=== PATIENT | female | born 1960 | race Caucasian/White ===

== ENCOUNTER 2019-10-04 10:41 | Outpatient (CLI) | payer BC, SELFPAY ==
[2019-10-04 11:24] LABS: Alanine Aminotransferase 22 U/L (4-35); Albumin Level 4.5 g/dL (3.5-5.1); Alkaline Phosphatase 56 U/L (38-126); Anion Gap 11.5 mmol/L (7-16); Aspartate Amino Transferase 22 U/L (14-36); Bilirubin,Total 0.4 mg/dL (0.2-1.3); Blood Urea Nitrogen 16 mg/dL (7-17); Calcium 9.1 mg/dL (8.4-10.2); Carbon Dioxide 27 mmol/L (22-30); Chloride 107 mmol/L (98-107); Cholesterol 187 mg/dL (0-200); Estimated Glomerular Filt Rate > 60; Glucose 93 mg/dL (65-105); HDL Direct 47 mg/dL; Potassium 4.5 mmol/L (3.4-5.0); Sodium 141 mmol/L (137-145); Triglycerides 58 mg/dL (<150)
[2019-10-04 11:35] LABS: LDL Cholesterol Direct 121 mg/dL
== END 2019-10-04 10:42 | disposition home or self-care (01) ==
PROVIDERS: PCP Family Medicine; Visit Provider Family Medicine
DX: E78.5 Hyperlipidemia, unspecified (principal)
CPT/HCPCS: 36415; 80053; 80061

== ENCOUNTER 2020-03-06 08:57 | Outpatient (CLI) | payer BC, SELFPAY ==
--- NOTE | ~2020-03-06 | MM_ITS ---
EXAMINATION: MM screening [facility] HISTORY: Screening mammogram TECHNIQUE: Craniocaudal and mediolateral oblique 3-D tomosynthesis images were obtained and synthetic 2-D images were generated. CAD analysis was submitted and interpreted. COMPARISON: 12/20/2018, 10/20/2017 bilateral digital screening mammogram examinations 09/02/2016 right screening digital left diagnostic digital mammogram examination BREAST PARENCHYMAL COMPOSITION: There are scattered areas of fibroglandular density. FINDINGS: Bilateral upper outer quadrant stable benign-appearing intramammary lymph nodes are noted. There is no evidence of suspicious mass, calcification, or architectural distortion to suggest malign yasmine in either breast. There has been no suspicious interval change. IMPRESSION: 1. No mammographic evidence of malignancy. 2. Recommend routine screening mammography in one year. BI-RADS Category 2: Benign finding(s). Reviewed, dictated and finalized at location B. E WORKER
== END 2020-03-06 08:58 | disposition home or self-care (01) ==
LOC: ANHIMG 09:01
PROVIDERS: PCP Family Medicine; Visit Provider Obstetrics & Gynecology
DX: Z12.31 Encounter for screening mammogram for malignant neoplasm of breast (principal)
CPT/HCPCS: 77063; 77067

== ENCOUNTER 2020-06-13 09:49 | Outpatient (CLI) | payer BC, SELFPAY ==
--- NOTE | 2020-06-13 11:30 | NEURO_ITS ---
Impression: # Complains of pain and numbness of hands, right more than left. # Left Carpal Tunnel Syndrome. # Bilateral ulnar neuropathy across the elbows, left more than right. # Normal needle/EMG exam. Nerve Conduction Studies Anti Sensory Summary Table Stim Site NR Peak (ms) P-T Amp (?V) Site1 Site2 Delta-P (ms) Dist (cm) Jasvir (m/s) Left Median Anti Sensory (2-3nd Digit) Wrist 4.3 28.6 Wrist 2-3nd Digit 4.3 14.0 33 Wrist 4.7 20.4 Wrist 2-3nd Digit 4.3 14.0 33 Right Median Anti Sensory (2-3nd Digit) Wrist 3.1 61.3 Wrist 2-3nd Digit 3.1 14.0 45 Wrist 3.3 35.7 Wrist 2-3nd Digit 3.1 14.0 45 Left Radial Anti Sensory (Base 1st Digit) Wrist 2.0 16.6 Wrist Base 1st Digit 2.0 0.0 Right Radial Anti Sensory (Base 1st Digit) Wrist 2.3 20.0 Wrist Base 1st Digit 2.3 0.0 Left Ulnar Anti Sensory (5th Digit) Wrist 2.6 14.6 Wrist 5th Digit 2.6 14.0 54 Right Ulnar Anti Sensory (5th Digit) Wrist 2.6 29.3 Wrist 5th Digit 2.6 14.0 54 Motor Summary Table Stim Site NR Onset (ms) O-P Amp (mV) Site1 Site2 Delta-0 (ms) Dist (cm) Jasvir (m/s) Left Median Motor (Abd Poll Brev) Wrist 4.6 2.2 Elbow Wrist 4.5 29.0 64 Elbow 9.1 4.0 Right Median Motor (Abd Poll Brev) Wrist 3.3 2.7 Elbow Wrist 4.4 26.0 59 Elbow 7.7 2.4 Left Ulnar Motor (Abd Dig Minimi) Wrist 2.7 8.5 A Elbow Wrist 5.8 29.0 50 A Elbow 8.5 7.5 B Elbow Wrist 4.1 23.0 56 B Elbow 6.8 4.2 Right Ulnar Motor (Abd Dig Minimi) Wrist 2.8 7.2 A Elbow Wrist 5.3 28.0 53 A Elbow 8.1 5.8 B Elbow Wrist 3.2 20.0 63 B Elbow 6.0 4.6 F Wave Studies NR F-Lat (ms) L-R F-Lat (ms) Left Median (Mrkrs) (Abd Poll Brev) 30.86 1.88 Right Median (Mrkrs) (Abd Poll Brev) 28.97 1.88 Left Ulnar (Mrkrs) (Abd Dig Min) 28.52 0.23 Right Ulnar (Mrkrs) (Abd Dig Min) 28.28 0.23 EMG Side Muscle Nerve Root Ins Act Fibs Amp Dur Recrt Comment Right 1stDorInt Ulnar C8-T1 Nml Nml Nml Nml Nml Right Ext Indicis Radial (Post Int) C7-8 Nml Nml Nml Nml Nml Right Ext Digitorum Radial (Post Int) C7-8 Nml Nml Nml Nml Nml Right BrachioRad Radial C5-6 Nml Nml Nml Nml Nml Right PronatorTeres Median C6-7 Nml Nml Nml Nml Nml Right Abd Poll Brev Median C8-T1 Nml Nml Nml Nml Nml Left 1stDorInt Ulnar C8-T1 Nml Nml Nml Nml Nml Left Ext Indicis Radial (Post Int) C7-8 Nml Nml Nml Nml Nml Left Ext Digitorum Radial (Post Int) C7-8 Nml Nml Nml Nml Nml Left BrachioRad Radial C5-6 Nml Nml Nml Nml Nml Left PronatorTeres Median C6-7 Nml Nml Nml Nml Nml Left Abd Poll Brev Median C8-T1 Nml Nml Nml Nml Nml MTDD
== END 2020-06-13 09:50 | disposition home or self-care (01) ==
PROVIDERS: Visit Provider Plastic Surgery
DX: R20.0 Anesthesia of skin (principal); G56.02 Carpal tunnel syndrome, left upper limb; G56.23 Lesion of ulnar nerve, bilateral upper limbs
CPT/HCPCS: 95886; 95911

== ENCOUNTER 2020-06-21 10:44 | Outpatient (CLI) | payer BC, SELFPAY ==
[2020-06-21 11:23] LABS: Alanine Aminotransferase 17 U/L (4-35); Albumin Level 4.5 g/dL (3.5-5.1); Alkaline Phosphatase 59 U/L (38-126); Anion Gap 5 mmol/L (8-16); Aspartate Amino Transferase 22 U/L (14-36); Bilirubin,Total 0.5 mg/dL (0.2-1.3); Blood Urea Nitrogen 19 mg/dL (7-17); Calcium 9.4 mg/dL (8.4-10.2); Carbon Dioxide 29 mmol/L (22-30); Chloride 108 mmol/L (98-107); Cholesterol 185 mg/dL (0-200); Estimated Glomerular Filt Rate > 60; Glucose 94 mg/dL (65-105); HDL Direct 39 mg/dL; Potassium 4.3 mmol/L (3.4-5.0); Sodium 142 mmol/L (137-145); Triglycerides 84 mg/dL (<150)
[2020-06-21 11:34] LABS: LDL Cholesterol Direct 111 mg/dL
[2020-06-21 14:19] LABS: Folic Acid 10.5 ng/mL (2.76->20)
== END 2020-06-21 10:45 | disposition home or self-care (01) ==
PROVIDERS: PCP Physician Assistant; Visit Provider Physician Assistant
DX: Z00.00 Encounter for general adult medical examination without abnormal findings (principal); E78.2 Mixed hyperlipidemia
CPT/HCPCS: 36415; 80053; 80061; 82607; 82746; 84443

== ENCOUNTER 2021-06-09 09:20 | Outpatient (CLI) | payer BC, SELFPAY ==
--- NOTE | ~2021-06-09 | MM_ITS ---
EXAMINATION: MM screening [facility] HISTORY: Screening mammogram TECHNIQUE: Craniocaudal and mediolateral oblique 3-D tomosynthesis images were obtained and synthetic 2-D images were generated. CAD analysis was submitted and interpreted. COMPARISON: No prior mammogram is available for comparison at this institution. BREAST PARENCHYMAL COMPOSITION: FINDINGS: Bilateral benign circumscribed opacity in the axillary tails, consistent with benign intram ammary lymph nodes, stable since 10/20/2017. There is no evidence of suspicious mass, calcification, o r architectural distortion to suggest malignancy in either breast. There has been no suspicious inter pebbles change. IMPRESSION: 1. No mammographic evidence of malignancy. 2. Recommend routine screening mammography in one year. BI-RADS Category 2: Benign finding(s). Reviewed, dictated and finalized at location A.
== END 2021-06-09 09:21 | disposition home or self-care (01) ==
LOC: ANHIMG 09:22
PROVIDERS: Visit Provider Obstetrics & Gynecology
DX: Z12.31 Encounter for screening mammogram for malignant neoplasm of breast (principal)
CPT/HCPCS: 77063; 77067

== ENCOUNTER 2021-09-25 07:47 | Outpatient (CLI) | payer BC, SELFPAY ==
[2021-09-25 09:17] LABS: Alanine Aminotransferase 21 U/L (6-35); Albumin Level 4.5 g/dL (3.5-5.1); Alkaline Phosphatase 58 U/L (38-126); Anion Gap 10 mmol/L (8-16); Aspartate Amino Transferase 22 U/L (14-36); Bilirubin,Total 0.7 mg/dL (0.2-1.3); Blood Urea Nitrogen 14 mg/dL (7-17); Carbon Dioxide 27 mmol/L (22-30); Chloride 104 mmol/L (98-107); Cholesterol 181 mg/dL (0-200); Estimated Glomerular Filt Rate > 60; Glucose 102 mg/dL (65-110); HDL Direct 40 mg/dL; Potassium 4.1 mmol/L (3.4-5.0); Sodium 141 mmol/L (137-145); Triglycerides 128 mg/dL (<150)
[2021-09-25 09:27] LABS: LDL Cholesterol Direct 104 mg/dL
== END 2021-09-25 07:48 | disposition home or self-care (01) ==
LOC: ANHLAB 07:48
PROVIDERS: PCP Family Medicine; Visit Provider Physician Assistant Medical
DX: R53.83 Other fatigue (principal); E78.2 Mixed hyperlipidemia
CPT/HCPCS: 36415; 80053; 80061; 84443

== ENCOUNTER 2022-08-26 10:17 | Outpatient (CLI) | payer BC, SELFPAY ==
--- NOTE | ~2022-08-26 | US_ITS ---
EXAMINATION: US FNA w image guidance DATE: 08/26/2022 11:04 INDICATION: Left thyroid nodule TECHNIQUE: A time-out was performed to verify the patient's name, date of , and procedure to be performed . The procedure and its benefits and risks were discussed with the patient. Risks specifically discus sed included bleeding and infection. The patient understood the risks and agreed to proceed. The neck was prepped and draped in the usual sterile manner. 3 mL 1% lidocaine was used for local anesthesia . 6 passes were made with a 25G needle into the lesion. Appropriate needle location was documented with continuous sonographic guidance. A sterile bandage was applied. There were no immediate compli cations. FINDINGS: Grayscale ultrasound images demonstrate biopsy needles advanced into a 1.3 cm solid very hypoechoic T I RADS 5 nodule with coarse shadowing calcification in the left thyroid lobe. IMPRESSION: 1. Successful ultrasound-guided fine needle aspiration of a 1.3 cm TI RADS 5 left thyroid nodule. Reviewed, dictated and finalized at location A. IMPRESSION: 1. Successful ultrasound-guided fine needle aspiration of a 1.3 cm TI RADS 5 l eft thyroid nodule.
== END 2022-08-26 10:18 | disposition home or self-care (01) ==
PROVIDERS: PCP Family Medicine; Visit Provider Physician Assistant Medical
DX: E04.1 Nontoxic single thyroid nodule (principal)
CPT/HCPCS: 10005; 88173; 88305

== ENCOUNTER 2022-10-16 07:30 | Outpatient (CLI) | payer BC, SELFPAY ==
--- NOTE | ~2022-10-16 | MM_ITS ---
EXAMINATION: MM screening [facility] w [employer] HISTORY: Screening TECHNIQUE: Craniocaudal and mediolateral oblique 3-D tomosynthesis images were obtained and synthetic 2-D images were generated. CAD analysis was submitted and interpreted. COMPARISON: Comparison to multiple prior studies sequentially, with oldest reviewed study dated 06/2016. BREAST PARENCHYMAL COMPOSITION: There are scattered areas of fibroglandular density. FINDINGS: There is no evidence of suspicious mass, calcification, or architectural distortion to sugg est malignancy in either breast. There has been no suspicious interval change. IMPRESSION: 1. No mammographic evidence of malignancy. 2. Recommend routine screening mammography in one year. BI-RADS Category 1: Negative Reviewed, dictated and finalized at location A.
== END 2022-10-16 07:31 | disposition home or self-care (01) ==
LOC: ANHIMG 07:32
PROVIDERS: PCP Family Medicine; Visit Provider Obstetrics & Gynecology
DX: Z12.31 Encounter for screening mammogram for malignant neoplasm of breast (principal)
CPT/HCPCS: 77063; 77067

== ENCOUNTER 2023-12-16 07:21 | Outpatient (CLI) | payer BC, SELFPAY ==
--- NOTE | ~2023-12-16 | MM_ITS ---
EXAMINATION: MM screening [facility] HISTORY: Screening TECHNIQUE: Craniocaudal and mediolateral oblique 3-D tomosynthesis images were obtained and synthetic 2-D images were generated. CAD analysis was submitted and interpreted. COMPARISON: Comparison to multiple prior studies sequentially, with oldest reviewed study dated 06/2016. BREAST PARENCHYMAL COMPOSITION: Not dense: There are scattered areas of fibroglandular density. FINDINGS: There is no evidence of suspicious mass, calcification, or architectural distortion to sugg est malignancy in either breast. There has been no suspicious interval change. IMPRESSION: 1. No mammographic evidence of malignancy. 2. Recommend routine screening mammography in one year. BI-RADS Category 1: Negative Reviewed, dictated and finalized at location B.
== END 2023-12-16 07:22 | disposition home or self-care (01) ==
LOC: ANHIMG 07:22
PROVIDERS: PCP Family Medicine; Visit Provider Obstetrics & Gynecology
DX: Z12.31 Encounter for screening mammogram for malignant neoplasm of breast (principal)
CPT/HCPCS: 77063; 77067

== ENCOUNTER 2024-06-30 07:46 | Outpatient (CLI) | payer BC, SELFPAY ==
--- OUTSIDE RECORDS SUMMARY | 2024-06-30 07:53 | XMS_ITS | Clinical Summary ---
Author Organization [facility] Address [address] [place] [id number] Care Team Providers Care Compress Engineer Name Role Phone Unavailable Primary Care Provider Unavailabl e Social History Tobacco Use Types Packs/Day Years Used Date Smoking Tobacco: Never Assessed Comments Unknown Sex and Gender Information Value Date Recorded Sex Assigned at Not on file Legal Sex Female 4:21 PM CDT Gender Identity Not on file Sexual Orientation Not on file Plan of Treatment Health Maintenance Due Date Last Done Comments Cervical Cancer Screening Pa p Smear (Age 30 to 64) Every 3 Years 1961 Colorectal Cancer Screening Colonoscopy (10 Years) 1961 Annual Physical 1964 Hepatitis C 05/18/1979 DTaP, Tdap and Td Vaccines ( 1 - Tdap) 1980 Cervical Cancer Screening Pa p with HPV Testing (Age 30 to 64) Every 5 Years 05/18/1991 Cervical Cancer Screening with HPV 05/18/1991 Mammogram Screening 2001 Pneumococcal Vaccine: 50+ Ye ars (1 of 1 - PCV) 05/18/2011 Zoster Vaccines (1 of 2) 05/18/2011 COVID-19 Vaccine (2023-2 5 season) 2023 RSV Immunization or 60+ Years (1 - 1-dose 75+ series) 2036 Meningococcal B Vaccine Aged Out No l onger eligible based on patient's age to complete this topic Meningococcal Vaccine Aged Out No arias holly eligible based on patient's age to complete this topic RSV Immunizations Under 20 Months Aged Out No longer eligible based on patient's age to complete this topic
--- OUTSIDE RECORDS SUMMARY | 2024-06-30 07:53 | XMS_ITS | Clinical Summary ---
Author Organization [facility] Address [address] [place] [address] Care Team Providers Care Zipper Ironer Name Role Phone Unavailable Primary Care Provider Unavailabl e Source Comments [facility],non-owned Affiliates and Associated Physician Practices is amultiple site organization consisting of ambulatory clinics and hospital sitesin [place], [place], [place] and [place]. This disclosure is being madepursuant to the Care Everywhere program and may not contain all information available regarding this patient. Last updated 17.[facility] Storie Social History Tobacco Use Types Packs/Day Years Used Date Smoking Tobacco: Never Assessed Comments Unknown Sex and Gender Information Value Date Recorded Sex Assigned at Not on file Legal Sex Female 3:25 PM CDT Gender Identity Not on file Sexual Orientation Not on file Plan of Treatment Health Maintenance Due Date Last Done Comments COLOGUARD (AGES 45-75) - COL ON CA SCREENING 1961 COLON MONITORING 1961 COLONOSCOPY - COLON CA SCREENING 1961 CT COLONOGRAPHY - COLON CA SCREENING 1961 Colorectal Cancer Screening 1961 FIT - COLON CA SCREENING 1961 FLEX SIG - COLON CA SCREENING 1961 LIPID TESTING 1961 PAP SMEAR 1961 HIV SCREENING 1976 HEPATITIS C SCREENING 05/13/1979 DTAP/TDAP/TD VACCINES (1 - Tdap) 1980 PNEUMOCOCCAL VACCINE 50+ (1 of 1 - PCV) 05/18/2011 ZOSTER VACCINE (1 of 2) 05/18/2011 COVID-19 VACCINE (1 - 2023-2 5 season) 2023 DEPRESSION SCREENING 03/01/2024 MAMMOGRAM 09/21/2024 09/21/2022 INFLUENZA VACCINE (Season Ended) 2024 Respiratory Syncytial Virus (RSV) Vaccine Pt: or over 60 yrs (1 - 1-dose 75+ series) 2036 HEPATITIS B VACCINE Aged Out No longe r eligible based on patient's age to complete this topic HIB VACCINE Aged Out No longer eligi ble based on patient's age to complete this topic HPV VACCINE Aged Out No longer eligi ble based on patient's age to complete this topic MENINGOCOCCAL (Group B) VACC INE SHARED DECISION-MAKING Aged Out No longer eligibl e based on patient's age to complete this topic MENINGOCOCCAL GROUPS A/C/Y/W VACCINE Aged Out No longer eligible b ased on patient's age to complete this topic Insurance TER[employer]
--- OUTSIDE RECORDS SUMMARY | 2024-06-30 07:53 | XMS_ITS | Encounter Summary ---
Author Organization [facility] Address [address] [place] [address] Phone Care Team Providers Care Heeler Name Role Phone Lovely Arellano MD Primary Care Provider [phone] Encounter Details Date Type Department Care Team (Late st Contact Info) Description 10/06/2022 Orders Only [place] [facility] ([facility]) - [facility] ENT [address] [facility] [address]th [place] [address] [place] [address] Lovely Man RN Social History Tobacco Use Types Packs/Day Years Used Date Smoking Tobacco: Never Passive Smoke Exposure: Never Smokeless Tobacco: Never AUDIT-C Answer Date Recorded Q1: How often do you have a drink containing alc ohol? Monthly or less 10/05/2022 Q2: How many drinks containi ng alcohol do you have on a typical day when you are drinking? 1 or 2 10/05/2022 Q3: How often do you have si x or more drinks on one occasion? Never 10/05/2022 Comments Unknown Sex and Gender Information Value Date Recorded Sex Assigned at Not on file Legal Sex Female 4:32 PM CDT Gender Identity Not on file Sexual Orientation Not on file documented as of this encounter Plan of Treatment Not on file documented as of this encounter Visit Diagnoses Not on filedocumented in this encounter Care Teams Heeler Relationship Specialty Start Date End Date Lovely Arellano MD PCP - General Family Medicine 09/15/22 documented as of this encounter
--- OUTSIDE RECORDS SUMMARY | 2024-06-30 07:53 | XMS_ITS | Clinical Summary ---
Author Organization [facility] [address] [facility] Address [address] [place] [address] Care Team Providers Care Micrographics Services Supervisor Name Role Phone Lovely Arellano MD Primary Care Provider [phone] Allergies No known active allergies Medications lovastatin (MEVACOR) 20 mg tabletIndications: hyperlipidemia Take 1 tablet (20 mg total) by mouth nightly 07/29/19 23 Active acetaminophen (Tylenol Extra Strength) 500 mg tabletIndications: Pain Take 2 tablets (1,000 mg total) by mouth every 6 (six) hours as needed for pain Active ibuprofen 200 mg tab/capIndications :Pain Take 2 tablet/capsule (400 mg total) by mouth every 6 (six) hours as needed for pain Active oxyCODONE (ROXICODONE) 5 mg immediate release tabletIndications: Pain Take 1 tablet (5 mg total) by mouth every 4 (four) hours as needed for pain 15 tablet 10/29/19 23 Active Additional Information Patient not taking.Reported on 11/16/2022 ondansetron ODT (ZOFRAN-ODT) 4 mg disintegrating tablet Take 1 tablet (4 mg total) by mouth every 8 (eight) hours as needed for nausea or vomiting 20 tablet 10/29/19 23 Active Additional Information Patient not taking.Reported on 11/16/2022 bacitracin-neomyci n-polymyxin B (NEOSPORIN) ointmentIndication s:Minor Bacterial Skin Infections Apply topically 3 (three) times a day For 3 days on incision 14 g 10/29/19 23 Active Additional Information Patient not taking.Reported on 11/16/2022 Active Problems Problem Noted Date Diagnosed Date H/O partial thyroidectomy 04/19/2023 Assessment & Plan (04/19/2023 12:22 PM CONTAINERS SALES REPRESENTATIVE): Will check thyroid function test today. TSH goal is normal. 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 However BRAF status may upgrade to low-intermediate FRED risk, therefore close monitoring is reasonable. Patient is scheduled for follow-up neck ultrasound in May with Dr. Sahni. I will plan to see her in one year with repeat neck ultrasound then annual for the next 3 years if remains stable. Discussed BRAF status might place the patient at slightly higher risk of lymph node involvement or recurrence, however given Papillary thyroid cancer pathology with relatively low risk final pathology, ultrasound surveillance is appropriate Tumor markers are less reliable Thyroid nodule 09/18/2022 Surgical History Surgery Date Site/Laterality Comments ELBOW SURGERY 03/01/1997 - 02/28/1998 Right SECTION 03/01/1994 - 02/28/1995 COLONOSCOPY 03/01/2015 - 02/29/2016 Medical History Medical History Date Comments Thyroid cancer (HCC) Family History Medical History Relation Name Comments Anesthesia problems Neg Hx Social History Tobacco Use Types Packs/Day Years Used Date Smoking Tobacco: Never Passive Smoke Exposure: Never Smokeless Tobacco: Never Tobacco Cessation:Counseling Given: Not Answered AUDIT-C Answer Date Recorded Q1: How often do you have a drink containing alc ohol? Monthly or less 10/05/2022 Q2: How many drinks containi ng alcohol do you have on a typical day when you are drinking? 1 or 2 10/05/2022 Q3: How often do you have si x or more drinks on one occasion? Never 10/05/2022 Personal Safety Answer Date Recorded Have you ever been in or are you currently in a harmful physical or emotional relationship or is someone making you feel afraid or unsafe? Denies 10/27/2022 Comments Unknown Sex and Gender Information Value Date Recorded Sex Assigned at Not on file Legal Sex Female 4:32 PM CDT Gender Identity Not on file Sexual Orientation Not on file Obstetrics History Last Filed Vital Signs Vital Sign Reading Time Taken Comments Blood Pressure 133/89 04/19/2023 10:42 AM CONTAINERS SALES REPRESENTATIVE Pulse 73 04/19/2023 10:42 AM CONTAINERS SALES REPRESENTATIVE Temperature 36.8 C (98.3 F) 04/19/2023 10:42 AM CONTAINERS SALES REPRESENTATIVE Respiratory Rate 18 10/28/2022 7:35 AM CDT Oxygen Saturation 95% 10/28/2022 7:35 AM CDT Inhaled Oxygen Concentration - - Weight 123.4 kg (272 lb) 06/14/2023 11:04 AM CDT Height 167.6 cm (5' 6 ) 04/19/2023 10:42 AM CONTAINERS SALES REPRESENTATIVE Body Mass Index 43.9 04/19/2023 10:42 AM CONTAINERS SALES REPRESENTATIVE Plan of Treatment Health Maintenance Due Date Last Done Comments Breast Cancer Screening-Mammogram 1961 Cervical Cancer Screening 1961 Colon Cancer Screening-Colonoscopy 1961 Depression Screening 1961 Hepatitis C Screening 1961 Hepatitis B Screening 05/18/1979 Regular Well Visit/Exam 18-64 05/18/1979 Zoster Vaccine (1 of 2) 05/18/2011 Covid-19 Vaccine (3 - season) 2023 06/17/2020, 05/20/2020 DTaP/Tdap/Td Vaccine (2 - Td or Tdap) 03/08/2024 03/08/2014, 02/18/2004 Influenza Vaccine (Season Ended) 2024 12/28/2021, 01/31/2020, 12/16/2018, Additional history exists Pneumococcal vaccine <65 Aged Out No longer eligible based on patient's age to complete this topic Medical Devices Implanted Type Area C4 Planner Device Identifier Shelf Expiration Date Model / Serial / Lot Hardware Right: Elbow Insurance BLUE [facility] CHOICE OOS [facility] CHOICE OOS Advance Directives For more information, please contact: [phone] * Full Code (Latest Code Status on File) Date Activated Date Inactivated Comments 10/27/2022 8:26 PM 10/28/2022 3:03 PM Care Teams Micrographics Services Supervisor Relationship Specialty Start Date End Date Lovely Arellano MD PCP - General Family Medicine 09/15/22
--- OUTSIDE RECORDS SUMMARY | 2024-06-30 07:53 | XMS_ITS | Referral Summary ---
Author Organization [facility] [address] [facility] Address [address] [place] [address] Care Team Providers Care Drywall Metal Stud Worker Name Role Phone Lovely Arellano MD Primary Care Provider [phone] Allergies No known active allergies Medications lovastatin [...] 04/19/2023 Assessment & Plan (04/19/2023 12:22 PM RHINESTONE SETTER): Will check thyroid function test today. TSH goal is normal. 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 Assessment & Plan (04/19/2023 12:25 PM RHINESTONE SETTER): Low risk thyroid cancer status post partial [...] markers are less reliable Thyroid nodule 09/18/2022 Social History Tobacco Use Types Packs/Day Years [...] on file Sexual Orientation Not on file Last Filed Vital Signs Vital Sign Reading Time Taken Comments Blood Pressure 133/89 04/19/2023 10:42 AM RHINESTONE SETTER Pulse 73 04/19/2023 10:42 AM RHINESTONE SETTER Temperature 36.8 C (98.3 F) 04/19/2023 10:42 AM RHINESTONE SETTER Respiratory Rate 18 10/28/2022 7:35 AM CDT Oxygen Saturation 95% 10/28/2022 7:35 AM CDT Inhaled Oxygen Concentration - - Weight 123.4 kg (272 lb) 06/14/2023 11:04 AM CDT Height 167.6 cm (5' 6 ) 04/19/2023 10:42 AM RHINESTONE SETTER Body Mass Index 43.9 04/19/2023 10:42 AM RHINESTONE SETTER Plan of Treatment Not on file Medical Devices Implanted Type Area Bar Supervisor Device Identifier Shelf Expiration Date Model / Serial / Lot Hardware Right: [employer] Advance Directives For more information, please contact: [phone] * Full Code (Latest Code Status on File) Date Activated Date Inactivated Comments 10/27/2022 8:26 PM 10/28/2022 3:03 PM Care Teams Drywall Metal Stud Worker Relationship Specialty Start Date End Date Lovely Arellano MD PCP - General Family Medicine 09/15/22
[2024-06-30 08:14] LABS: Alanine Aminotransferase 24 U/L (6-35); Albumin Level 4.4 g/dL (3.5-5.1); Alkaline Phosphatase 60 U/L (38-126); Anion Gap 9 mmol/L (4-12); Aspartate Amino Transferase 20 U/L (14-36); Bilirubin,Total 0.6 mg/dL (0.2-1.3); Blood Urea Nitrogen 19 mg/dL (7-17); Carbon Dioxide 25 mmol/L (22-30); Chloride 105 mmol/L (98-107); Cholesterol 215 mg/dL (0-200); Estimated Glomerular Filt Rate > 60; Glucose 113 mg/dL (65-110); HDL Direct 39 mg/dL; Potassium 4.1 mmol/L (3.4-5.0); Sodium 139 mmol/L (137-145); Triglycerides 176 mg/dL (<150)
[2024-06-30 08:25] LABS: LDL Cholesterol Direct 125 mg/dL
[2024-06-30 10:54] LABS: Free T4 Free Thyroxine Reflex 0.79 ng/dL (0.78-2.19)
[2024-06-30 12:47] LABS: Total Triiodothyronine (T3) 1.68 NG/ML (0.97-1.69)
== END 2024-06-30 07:47 | disposition home or self-care (01) ==
LOC: ANHLAB 07:51
PROVIDERS: PCP Family Medicine; Visit Provider Family Medicine
DX: E03.9 Hypothyroidism, unspecified (principal); E78.2 Mixed hyperlipidemia
CPT/HCPCS: 36415; 80053; 80061; 84439; 84443; 84480

== ENCOUNTER 2025-01-31 09:06 | Outpatient (CLI) | payer BC, SELFPAY ==
--- NOTE | ~2025-01-31 | DEXA_ITS ---
Bone Density Report Name: HAKAN AREVALO Age: 64 Sex: Female Ethnicity: White Date of : 1960 Indication: postmenopausal; screening for osteoporosis; height loss; cancer; Referring Provider: SHERRI MISHRA Study: Bone densitometry was performed. Exam Date: January 31, 2025 Accession number: [id number] Bone Density: Region BMD T-score Z-score Classification AP Spine(L1-L4) 1.124 0.7 2.4 Normal Femoral Neck (Left) 0.978 1.2 2.6 Normal Total Hip (Left) 0.963 0.2 1.3 Normal Femoral Neck (Right) 0.874 0.2 1.7 Normal Total Hip (Right) 0.953 0.1 1.2 Normal Total Hip Mean 0.958 0.2 1.3 Normal World Health Organization criteria for BMD impression classify patients as: Normal (T-score at or above -1.0), Osteopenia (T-score between -1.0 and -2.5), or Osteoporosis (T-score at or below -2.5). 10-year Fracture Risk: FRAX not reported because: All T-scores for Spine Total, Hip Total, Femoral Neck at or above -1.0 Clinical Information Provided by Patient: Has used the following medications: Vitamin D Has the following medical conditions: Cancer Patient maximum height was 66 Menopause Age: 61 No regular weight bearing exercise Does not regularly consume dairy products Drinks caffeinated beverages Onset of menses at age 13 Number of children 1 Impression: The patient has normal bone mass. Discussion: BONE DENSITY IS ABOVE THE MINIMUM DESIRABLE LEVEL AT ALL SKELETAL SITES TESTED. This patient?s bone mineral density is above the minimum desirable level (T-score -1.0 or better) at all sites measured. The patient should follow a healthful lifestyle (good nutrition with adequate calcium and vitamin D, and appropriate weight-bearing exercise). Follow-Up: Consider repeating this study in 5 years or sooner if there is some new clinical indication. Reported by: LOBO on 01/31/2025 9:48:00 AM. Reviewed, dictated and finalized at location A.
--- OUTSIDE RECORDS SUMMARY | 2025-01-31 09:50 | XMS_ITS | Clinical Summary ---
Author Organization [facility] Address [address] [place] [address] Care Team Providers Care Diving Judge Name Role Phone Unavailable Primary Care Provider Unavailabl e Source Comments [facility],non-owned Affiliates and Associated Physician Practices is amultiple site organization consisting of ambulatory clinics and hospital sitesin [place], [place], [place] and [place]. This disclosure is being madepursuant to the Care Everywhere program and may not contain all information available regarding this patient. Last updated 17.[facility] Social History Tobacco Use Types Packs/Day Years [...] COLON CA SCREENING 1961 LIPID TESTING 1961 MAMMOGRAM 1961 HIV SCREENING 1976 HEPATITIS C SCREENING 05/13/1979 DTAP/TDAP/TD VACCINES (1 - Tdap) 1980 Cervical Cancer Screening 1982 PAP SMEAR 1982 PAP with HPV 05/18/1991 PNEUMOCOCCAL VACCINE 50+ (1 of 1 - PCV) 05/18/2011 ZOSTER VACCINE (1 of 2) 05/18/2011 DEPRESSION SCREENING 03/01/2024 COVID-19 VACCINE ( - 2024-2 6 season) 2024 INFLUENZA VACCINE (#1) 2024 Respiratory Syncytial Virus (RSV) Vaccine Pt: [...] patient's age to complete this topic Insurance REGINA
--- OUTSIDE RECORDS SUMMARY | 2025-01-31 09:50 | XMS_ITS | Encounter Summary ---
Author Organization [facility] Address [address] [place] [address] Phone Care Team Providers Care Install And Repair Technician Name Role Phone Lovely Arellano MD Primary Care Provider [phone] Encounter Details Date Type Department Care Team (Late st Contact Info) Description 10/06/2022 Orders Only [place] [facility] ([facility]) - [facility] Medicine ENT [address] [facility] [facility] Advanced [address]th [place] [address] [place] [address] Lovely Man RN Social History [...] on filedocumented in this encounter Care Teams Install And Repair Technician Relationship Specialty Start Date End Date Lovely Arellano MD PCP - General Family Medicine 09/15/22 documented as of this encounter
--- OUTSIDE RECORDS SUMMARY | 2025-01-31 09:50 | XMS_ITS | Clinical Summary ---
Author Organization [facility] [address] [facility] Address [address] [place] [address] Care Team Providers Care Commercial Credit Lead Name Role Phone Lovely Arellano MD Primary Care Provider [phone] Allergies No known active allergies Medications lovastatin (MEVACOR) 20 mg tabletIndicatio ns:hyperlipidem ia Take 1 tablet (20 mg total) by mouth nightly 07/28/2022 Active Active Problems Problem Noted Date Diagnosed Date Low serum vitamin D 10/02/2024 Assessment & Plan (10/02/2024 11:16 AM CDT): Will check levels Chronic fatigue 10/02/2024 Assessment & Plan (10/02/2024 11:17 AM CDT): Will check TFT, Vit D, and BMP If normal, encouraged to discuss further with her PCP including screening for sleep apnea Class 3 severe obesity due t o excess calories without serious comorbidity with body mass index (BMI) of 45.0 to 49.9 in adult 10/02/2024 Assessment & Plan (10/02/2024 11:20 AM CDT): Patient may benefit from weight management clinic evaluation H/O partial thyroidectomy 04/19/2023 Assessment & Plan (10/02/2024 10:58 AM CDT): Will check thyroid function test today. TSH goal is normal. Patient is not requiring thyroid hormone replacement Assessment & Plan (04/19/2023 12:22 PM POULTICE MACHINE OPERATOR): Will check thyroid function test today. TSH goal is normal. 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 However BRAF status may upgrade to low-intermediate FRED risk, therefore close monitoring is reasonable. Follow up neck US today CAITLYN Discussed BRAF status might place the patient at slightly higher risk of lymph node involvement or recurrence, however given Papillary thyroid cancer pathology with relatively low risk final pathology, ultrasound surveillance is appropriate Tumor markers are less reliable TSH goal in lower normal range - she has not required levothyroxine to date Assessment & Plan (04/19/2023 12:25 PM POULTICE MACHINE OPERATOR): Low risk thyroid cancer status post partial [...] markers are less reliable Thyroid nodule 09/18/2022 Encounters Date Type Department Care Team Description 01/17/2025 9:27 AM POULTICE MACHINE OPERATOR - 01/17/2025 11:59 PM POULTICE MACHINE OPERATOR Hospital Encounter [address] [address] Screening mammogram, encounter for Discharge Disposition: Discharge to home or self care from Last 3 Months Surgical History Surgery Date Site/Laterality Comments ELBOW [...] feel afraid or unsafe? Denies 10/27/2022 Comments No Sex and Gender Information Value Date Recorded Sex Assigned at Not on file Legal Sex Female 4:32 PM CDT Gender Identity Not on file Sexual Orientation Not on file Obstetrics History Para Term AB IAB SAB Ectopic Multiple Livin g Live Births 1 1 Date Outcome GA Total Labor Labor/2nd/3rd Weight Sex Type Anes PTL Gracy A1 A5 Name Clin Last Filed Vital Signs Vital Sign Reading Time Taken Comments Blood Pressure 176/90 10/02/2024 10:44 AM CDT Pulse 89 10/02/2024 10:44 AM CDT Temperature 36.3 C (97.3 F) 10/02/2024 10:44 AM CDT Respiratory Rate 18 10/02/2024 10:4 4 AM CDT Oxygen Saturation 96% 10/02/2024 10: 44 AM CDT Inhaled Oxygen Concentration - - Weight 133.6 kg (294 lb 8.6 oz) 01/17/2025 9:30 AM POULTICE MACHINE OPERATOR Height 167.6 cm (5' 5.98) 01/17/2025 9:30 AM CS T Body Mass Index 47.56 01/17/2025 9:30 AM POULTICE MACHINE OPERATOR Plan of Treatment Health Maintenance Due Date Last Done Comments Cervical Cancer Screening 1960 Colon Cancer Screening-Colonoscopy 1960 Depression Screening 1960 Hepatitis C Screening 1960 Hepatitis B Screening 05/18/1979 Regular Well Visit/Exam 18-64 05/18/1979 Zoster Vaccine (1 of 2) 05/18/2011 DTaP/Tdap/Td Vaccine (2 - Td or Tdap) 03/08/2024 03/08/2014, 02/18/2004 Covid-19 Vaccine (3 - season) 2024 06/17/2020, 05/20/2020 Influenza Vaccine (#1) 2024 2, 01/31/2020, 12/16/2018, Additional history exists Breast Cancer Screening-Mammogram 01/17/2026 01/17/2025 Pneumococcal vaccine <65 Aged Out No longer eligible based on patient's age to complete this topic Medical Devices Implanted Type Area Rig Site Engineer Device Identifier Shelf Expiration Date Model / Serial / Lot Hardware Right: Elbow Procedures Procedure Name Priority Date/Time Associated Diagnosis Comments SCREENING MAMMOGRAM BILATERAL W JAMES Schedule Routine, Read Routine (OP Routine) 01/17/2025 9:55 AM POULTICE MACHINE OPERATOR Screening mammogram, encounter for from Last 3 Months Results * Screening Mammogram Bilateral W James (01/17/2025 9:55 AM POULTICE MACHINE OPERATOR) Anatomical Region Laterality Modality Breast Bilateral Mammography Impressions 01/18/2025 9:26 AM POULTICE MACHINE OPERATOR Bilateral No evidence of malignancy in either breast. OVERALL BI-RADS FINAL ASSESSMENT: 1 - Negative RECOMMENDATION: Recommend bilateral annual screening mammography. Narrative 01/18/2025 9:26 AM POULTICE MACHINE OPERATOR EXAMINATION: Screening Mammogram Bilateral W James: 01/17/2025 COMPARISON: Relevant prior studies available at the time of interpretation were reviewed, including the most recent mammogram on: 12/16/2023. TECHNIQUE: Mammography was performed with 2D and 3D digital breast tomosynthesis (DBT) images. CAD was utilized. BREAST PARENCHYMAL COMPOSITION: The breasts are almost entirely fatty. FINDINGS: Bilateral There is no suspicious mass, calcification, or architectural distortion in either breast. us Self Screening Mammogram IMG MAMMO PROCEDURES Fi nal Result from Last [address] [facility] CHOICE [place] [facility] [place] Advance Directives For more information, please contact: [phone] * Full Code (Latest Code Status on File) Date Activated Date Inactivated Comments 10/27/2022 8:26 PM 10/28/2022 3:03 PM Care Teams Commercial Credit Lead Relationship Specialty Start Date End Date Lovely Arellano MD PCP - General Family Medicine 09/15/22
--- OUTSIDE RECORDS SUMMARY | 2025-01-31 09:50 | XMS_ITS | Clinical Summary ---
Author Organization [facility] Address [address] [place] [id number] Care Team Providers Care Liquor Establishment Manager Name Role Phone Unavailable Primary Care Provider [...] Vaccines (1 of 2) 05/18/2011 COVID-19 Vaccine (2024-2 6 season) 2024 Influenza Adult (#1) 2024 RSV Immunization or 60+ Years (1 - 1-dose 75+ series) 2036 Hepatitis A Vaccines Aged Out No long er eligible based on patient's age to complete this topic Meningococcal B Vaccine Aged Out No l onger eligible based on patient's age to complete this topic Meningococcal Vaccine Aged Out No arias holly eligible based on patient's age to complete this topic RSV Immunizations Under 20 Months Aged Out No longer eligible based on patient's age to complete this topic
== END 2025-01-31 09:07 | disposition home or self-care (01) ==
LOC: ANHFOHIMG 09:07
PROVIDERS: PCP Family Medicine
DX: Z78.0 Asymptomatic menopausal state (principal)
CPT/HCPCS: 77080